=== PATIENT | female | born 1940 | race Caucasian/White ===

== ENCOUNTER → 2019-04-09 | Outpatient (CLI) | payer MEDICARE, BC ==
--- NOTE | 2019-04-09 18:51 | PCVCIMAG ---
EXAM: BILATERAL LOWER EXTREMITY ARTERIAL DUPLEX INDICATION: Peripheral Arterial Disease. Leg pain. Nonhealing ulcers FINDINGS: Right Leg: Common femoral and profunda femoral arteries are patent. Superficial femoral artery and popliteal artery are patent. The anterior tibial and peroneal arteries are patent. Occlusion throughout the posterior tibial artery. Left Leg: Common femoral and profunda femoral arteries are patent. Superficial femoral artery is patent. Increased systolic velocity mid pokagon popliteal artery 491 cm/s consistent with 95% stenosis. Occlusion of the mid and distal anterior tibial artery. The peroneal and posterior tibial arteries are patent. 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 Otherwise no flow limiting stenosis in the right lower extremity. 95% stenosis mid pokagon left popliteal artery. Occlusion of the mid/distal left anterior tibial artery. LOC:[id number]
== END ==
LOC: PCVCIMAG 11:02
PROVIDERS: ATTEND Emergency Medicine
DX: I73.9 Peripheral vascular disease, unspecified (principal)
CPT/HCPCS: 93925